=== PATIENT | female | born 1995 | race Caucasian/White ===

== ENCOUNTER 2017-08-09 17:46 | Emergency (ER) | payer MEDICAID ==
[~2017-08-09] VITALS: Ht 162.6 cm; Wt 53.0 kg
[2017-08-09] MEDS ORDERED: ESTR1.25 PO (18:18)
[2017-08-09] MEDS ORDERED: CITA20TA9 PO (18:18)
[2017-08-09] MEDS ORDERED: OLAN20TA3 PO (18:18)
[2017-08-09 19:11] LABS: BASOPHILS # (AUTO) 0.04 x10^3/uL (0-0.1); BASOPHILS % (AUTO) 1 % (0-1); EOSINOPHILS # (AUTO) 0.31 x10^3/uL (0-0.4); EOSINOPHILS % (AUTO) 4 % (1-7); LYMPHOCYTES # (AUTO) 2.33 x10^3/uL (1-3.4); LYMPHOCYTES % (AUTO) 28 % (22-44); MD NO; MEAN CORPUSCULAR HEMOGLOBIN 31.2 pg (27.0-34.8); MEAN CORPUSCULAR HGB CONC 34.4 g/dL (32.4-35.8); MEAN CORPUSCULAR VOLUME 90.7 fL (80-100); MEAN PLATELET VOLUME 7.6 fL (7.4-10.4); MONOCYTES # (AUTO) 0.51 x10^3/uL (0.2-0.8); MONOCYTES % (AUTO) 6 % (2-9); NEUTROPHILS # (AUTO) 5.21 x10^3/uL (1.8-6.8); NEUTROPHILS % (AUTO) 62 % (42-75); PLATELET COUNT 315 x10^3/uL (130-400); RED BLOOD COUNT 4.41 x10^6/uL (3.82-5.3); RED CELL DISTRIBUTION WIDTH 12.9 % (9.6-15.2)
[2017-08-09 19:24] LABS: ALANINE AMINOTRANSFERASE 17 U/L (12-78); ALBUMIN 3.4 g/dL (3.4-5.0); ANION GAP 8 mmol/L (5-15); CALCIUM 8.4 mg/dL (8.5-10.1); CHLORIDE 107 mmol/L (98-107); CREATININE 0.59 mg/dL (0.55-1.02); SALICYLATE LEVEL < 1.7 mg/dL (2.8-20.0)
[2017-08-09 19:26] LABS: ALKALINE PHOSPHATASE 78 U/L (45-117); BILIRUBIN,TOTAL 0.6 mg/dL (0.2-1.0); TOTAL PROTEIN 7.1 g/dL (6.4-8.2)
[2017-08-09 19:27] LABS: ACETAMINOPHEN < 2 mcg/mL (10-30)
[2017-08-10] MEDS ORDERED: LORazepam 1MG TABLET PO PRN (01:00)
[2017-08-10] MEDS ORDERED: POLYETHYLENE GLYCOL 17 GM PACKET PO PRN (01:00)
[2017-08-10] MEDS ORDERED: ZIPRASIDONE 20 MG INJ IM PRN (01:00)
[2017-08-10] MEDS ORDERED: BISACODYL 10 MG SUPP PR PRN (01:00)
[2017-08-10] MEDS ORDERED: ONDANSETRON ODT 4 MG PO PRN (01:00)
[2017-08-10] MEDS ORDERED: ACETAMINOPHEN 325 MG TABLET PO PRN (01:00)
[2017-08-10] MEDS ORDERED: DIPHENHYDRAMINE 50 MG CAPSULE PO PRN (01:00)
[2017-08-10 02:04] LABS: AMPHETAMINE SCREEN, URINE Positive (Negative); BARBITURATE SCREEN, URINE Negative (Negative); BENZODIAZEPINE SCREEN, URINE Negative (Negative); CANNABINOID SCREEN, URINE Negative (Negative); COCAINE SCREEN, URINE Negative (Negative); HCG UR SG 1.032 (1.003-1.030); METHADONE SCREEN, URINE Negative (Negative); OPIATE SCREEN, URINE Negative (Negative)
[2017-08-10] MEDS ORDERED: SENNA/DOCUSATE TABLET PO SCH (09:00)
[2017-08-10] MEDS ORDERED: CITALOPRAM 20 MG TABLET PO SCH (09:00)
[2017-08-11 07:52] VITALS: BP 98/57
[2017-08-11] MEDS ORDERED: ZIPRASIDONE 20 MG INJ IM ONE ×2 (09:55→10:00)
== END 2017-08-11 18:26 | disposition home or self-care (01) ==
LOC: ED 08-10 00:38 → EDIP 08-10 00:45 → UNDOADMOB 08-10 00:45 → ED 08-11 18:26
DX: R45.851 Suicidal ideations (principal); F31.9 Bipolar disorder, unspecified; F29 Unspecified psychosis not due to a substance or known physiological condition; F15.10 Other stimulant abuse, uncomplicated
CPT/HCPCS: 36415; 80053; 80307; 80329; 81025; 84703; 85025; 96372; 99284; J3486; G0479; G0480